=== PATIENT | male | born 1970 | race Caucasian/White ===

== ENCOUNTER 2018-08-01 07:21 | Day surgery (SDC) | payer OTHER ==
[2018-07-31 14:37] VITALS: BMI 28.7
[2018-08-01] MEDS ORDERED: KETAMINE 100 MG/ML (5ML VIAL) ONE (08:58)
--- NOTE | 2018-08-01 11:09 | OP ---
DATE OF PROCEDURE: 08/01/2018 SURGEON: Dr. Jeevan Gomez PREOPERATIVE DIAGNOSIS: Colorectal cancer screening. PROCEDURE: After informed consent was obtained, the patient placed in left lateral decubitus positio n. Anesthesia was administered per the Anesthesia Department. Forward-viewing endoscope was inserte d into the rectum after perianal inspection and rectal exam were normal and passed to the terminal il eum with ease. The terminal ileum, ileocecal valve, and appendiceal orifice were normal. The prep w as excellent. The ascending, transverse, descending, sigmoid and rectum were normal. Retroflexion i n rectum was normal. ASSESSMENT: Normal ileocolonoscopy. RECOMMENDATIONS: Repeat colonoscopy in 10 years.
[2018-08-01] MEDS ORDERED: PROPOFOL 200 MG/20 ML VIAL ONE (12:46)
== END 2018-08-01 10:15 | disposition home or self-care (01) ==
LOC: SDC 07:21
PROVIDERS: ATTEND Internal Medicine Gastroenterology
PROC: 0DJD8ZZ Inspection of Lower Intestinal Tract, Via Natural or Artificial Opening Endoscopic (ICD-10-PCS; principal; 2018-08-01)
DX: Z12.11 Encounter for screening for malignant neoplasm of colon (principal)
CPT/HCPCS: J2704